=== PATIENT | female | born 1960 | race Caucasian/White ===

== ENCOUNTER 2019-08-15 12:50 | Emergency (ER) | payer OTHER ==
[~2019-08-15] VITALS: Ht 175.3 cm; Wt 72.6 kg
[2019-08-15 12:52] VITALS: Ht 175.3 cm; Wt 72.6 kg
[2019-08-15 14:31] VITALS: BP 130/86
== END 2019-08-15 14:31 | disposition home or self-care (01) ==
LOC: ED 12:50
DX: J40 Bronchitis, not specified as acute or chronic (principal); Z88.2 Allergy status to sulfonamides; Z88.1 Allergy status to other antibiotic agents
CPT/HCPCS: Q0092